=== PATIENT | male | born 1960 | race Caucasian/White ===

== ENCOUNTER → 2021-01-05 | Day surgery (SDC) | payer OTHER ==
[~2021-01-05] MED LIST: ASPIRIN CHEWABL81 MG PO; COZAAR50 MG PO; DYMISTA NASAL S23 GM; ECOTRIN81 MG PO; FLOMAX0.4 MG PO; FLONASE 0.05% N16 GM; HYDROCODON-ACE1 EAC4 PO; IMDUR ER TAB 3030 MG PO; IMDUR ER TAB 6060 MG PO; KETOROLAC TROME10 MG PO; LIPITOR TAB 2020 MG PO; LIPITOR20 MG PO; LOPRESSOR 25 MG25 MG PO; LOSARTAN POTAS100 MG PO; METOPROLOL TART50 MG PO; MULTIVITAMINS1 EAC1 PO; NORVASC10 MG PO; NORVASC5 MG PO; PEPCID20 MG PO; SINGULAIR10 MG PO; VOLTAREN ARTHRI20 GM TP; ZANTAC150 MG PO; ZYRTEC10 MG PO
== END | disposition home or self-care (01) ==
LOC: OR 07:25
PROVIDERS: Urology
PROC: 0TJB8ZZ Inspection of Bladder, Via Natural or Artificial Opening Endoscopic (ICD-10-PCS; principal; 2021-01-05 09:00)
DX: D49.4 Neoplasm of unspecified behavior of bladder (principal); N40.0 Benign prostatic hyperplasia without lower urinary tract symptoms; I25.10 Atherosclerotic heart disease of native coronary artery without angina pectoris; I25.2 Old myocardial infarction; M19.90 Unspecified osteoarthritis, unspecified site; K21.9 Gastro-esophageal reflux disease without esophagitis; I10 Essential (primary) hypertension; E78.00 Pure hypercholesterolemia, unspecified; G47.30 Sleep apnea, unspecified; Z79.82 Long term (current) use of aspirin; Z79.899 Other long term (current) drug therapy; Z85.51 Personal history of malignant neoplasm of bladder
CPT/HCPCS: 81001; J7040

== ENCOUNTER → 2021-01-19 | Day surgery (SDC) | payer OTHER ==
[~2021-01-19] VITALS: Ht 182.9 cm; Wt 113.4 kg
== END | disposition home or self-care (01) ==
LOC: OR 11:49
DX: C67.3 Malignant neoplasm of anterior wall of bladder (principal); I10 Essential (primary) hypertension; I25.10 Atherosclerotic heart disease of native coronary artery without angina pectoris; I25.2 Old myocardial infarction; G47.30 Sleep apnea, unspecified; K21.9 Gastro-esophageal reflux disease without esophagitis; M19.90 Unspecified osteoarthritis, unspecified site; F41.9 Anxiety disorder, unspecified; Z85.51 Personal history of malignant neoplasm of bladder; Z99.89 Dependence on other enabling machines and devices; Z79.899 Other long term (current) drug therapy
CPT/HCPCS: J2001; J2405; J2704; J3010; J7120